=== PATIENT | female | born 1965 | race Caucasian/White ===

== ENCOUNTER 2017-01-27 12:44 | Emergency (ER) | payer OTHER, MEDICAID ==
[~2017-01-27] VITALS: Wt 72.0 kg
[~2017-01-27 12:44] MED LIST: ACET650T85; ASPI-535; BENA20TA65; CLIN300C2; CLON-230; HYDR25TA6; NITR60OI
[2017-01-27] MEDS ORDERED: SOD CHLORIDE 0.9% 1,000 ML IV STA (14:03)
[2017-01-27 14:25] LABS: BASOPHILS % 0.4 % (0.0-2.0); EOSINOPHILS % 0.3 % (0.0-7.0); HEMATOCRIT 39.4 % (37.0-47.0); HEMOGLOBIN 12.7 g/dl (12.0-16.0); LYMPHOCYTES # 1.3 10^3/ul (0.8-2.9); MEAN CORPUSCULAR HEMOGLOBIN 26.2 pg (29.0-33.0); MEAN CORPUSCULAR HGB CONC 32.2 g/dl (32.0-37.0); MEAN CORPUSCULAR VOLUME 81.4 fl (82.0-101.0); MEAN PLATELET VOLUME 12.3 fl (7.4-10.4); MONOCYTE # 0.3 10^3/ul (0.3-0.9); MONOCYTES % 4.2 % (0.0-11.0); NEUTROPHIL # 5.7 10^3/ul (1.6-7.5); NEUTROPHILS % 77.8 % (39.0-77.0); PLATELET COUNT 300 10^3/UL (140-415); RED BLOOD COUNT 4.84 10^6/ul (4.20-5.40); RED CELL DISTRIBUTION WIDTH 13.6 % (11.5-14.5); WHITE BLOOD COUNT 7.3 10^3/ul (4.8-10.8)
[2017-01-27 14:43] LABS: CALCIUM 8.7 mg/dl (8.4-10.2); CREATININE 0.59 mg/dl (0.44-1.00); POTASSIUM 3.8 mmol/L (3.5-5.1)
[2017-01-27] MEDS ORDERED: SOD CHLORIDE 0.9% 100 ML ONE (15:54)
[2017-01-27] MEDS ORDERED: IODIXANOL LOCM 100 ML BTL ONE (15:54)
--- NOTE | 2017-01-27 17:01 | RADRPT ---
PROCEDURE: CT neck with contrast CLINICAL INDICATION: Neck pain and swelling TECHNIQUE: Routine CT scan of the neck was performed with intravenous contrast on a high[employer] multidetector scanner. One or more of the following dose reduction techniques were used: Automated exposure control; Adjustment of the mA and/or kV according to patient size; Use of iterative recons truction technique. CTDI = 9 mGy. DLP = 106 mGy-cm. CONTRAST: 80 ml Visipaque 320 administered without adverse event. COMPARISON: No prior studies are available for comparison. FINDINGS: Sinuses: Visualized paranasal sinuses are clear. Nasopharynx: Clear. Maxilla/Mandible/TMJ: Within normal limits. Suprahyoid neck: Oral cavity and tongue are normal. Normal appearance of palatine and lingual tonsils. Infrahyoid neck: Normal larynx and hypopharynx. Normal false and true vocal cords Visualized subglottic airway and trachea are normal. Salivary glands: Morphology and attenuation of the parotid, submandibular, and sublingual glands are normal. Thyroid gland: Normal morphology and attenuation. 5 mm cystic nodule is present within the superior pole of the right lobe of the thyroid gland. Lymph nodes: No evidence of pathologic enlargement, abnormal morphology or attenuation by CT criteri a. Vascular structures: Normal enhancement of the arterial and venous structures. Cervical spine: Alignment is preserved. No fractures. No significant spondylosis. IMPRESSION: 5 mm cystic nodule is present within the superior pole of the right lobe of the thyroid gland. Otherwise normal examination of the soft tissues of the neck. RPTAT: AADD .Chaz Martinez MD, Date Time Electronically viewed and signed by .Chaz Mratinez MD, on 01/27/2017 17:00 .B/
--- NOTE | 2017-01-27 17:34 | ERD ---
ER Documentation Chief Complaint Chief Complaint THROAT PAIN SENT FOR CT/US OF NECK HPI 51 year-old female patient with a past medical history of diabetes, hypertension , thyroid problems presents to the ED complaining of wanting a CAT scan of her thyroid and neck region because she was sent here by her primary care doctor for further evaluation and treatment. Patient obtained a thyroid ultrasound and had a subcentimeter cystic nodule of 0.50.40.4 cm nodule of the superior pole of the right thyroid lobe. Denies any fever, chest pain, shortness of breath, nausea, vomiting, odynophagia, dysphagia. ROS All systems reviewed and are negative except as per history of present illness. Medications Home Meds Reported Medications Nitroglycerin (Nitroglycerin) 60 Gm Oint..gm. 09/02/10 Clonidine Hcl (Clonidine Hcl) 0.1 Mg Tablet 09/02/10 Benazepril Hcl* (Lotensin*) 20 Mg Tablet 09/02/10 Acetaminophen (Tylenol 8 Hour) 650 Mg Tablet.sa 09/02/10 Aspirin Ec (Aspir 81) 81 Mg Tablet. 09/02/10 Benazepril Hcl* (Lotensin*) 20 Mg Tablet 09/01/10 Hydrochlorothiazide (Hydrochlorothiazide) 25 Mg Tablet 09/01/10 Clindamycin Hcl* (Cleocin*) 300 Mg Cap 09/01/10 Allergies Allergies: Coded Allergies: Penicillins (Verified Allergy, Mild, 04/28/11) PMhx/Soc History of Surgery: Yes (GALLBLADDER SURGERY) Anesthesia Reaction: Yes (VOMITS) Hx Neurological Disorder: No Hx Respiratory Disorders: No Hx Cardiac Disorders: Yes (HTN) Hx Psychiatric Problems: No Hx Miscellaneous Medical Probl: No Hx Alcohol Use: No Hx Substance Use: No Hx Tobacco Use: No Physical Exam Vitals Vital Signs Date Time Temp Pulse Resp B/P Pulse Ox O2 Delivery O2 Flow Rate FiO2 01/27/17 12:47 99.0 97 18 160/95 99 Physical Exam Const: [id number], well-nourished. In no acute distress. Head: Atraumatic, normocephalic Eyes: Normal Conjunctiva without injection. No purulent discharge. PERRL. EOMI ENT: Normal external ear. Ear canal without erythema. Tympanic membrane pearly brunner without effusion or bulging. Nasal canal clear with normal turbinates. Moist oropharynx without tonsillar exudates. Non-erythematous pharynx. Uvula midline. No drooling. No trismus. Neck: Full range of motion. No meningismus. No cervical lymphadenopathy. Tenderness to palpation of the left and right area of her ear or neck. Resp: Clear to auscultation bilaterally. No wheezing, rhonchi, rales, or crackles. No accessory muscle use. No retractions. Cardio: Regular rate and rhythm. No murmurs, rubs or gallops. Abd: Soft, non tender, non distended. Normal bowel sounds. No palpable masses. No rebound tenderness. No guarding. Skin: No petechiae or rashes Back: No midline tenderness. No CVA tenderness. Ext: No cyanosis, or edema. Neur: Awake and alert. Psych: Normal Mood and Affect Results 24 hrs Laboratory Tests Test 01/27/17 14:15 White Blood Count 7.310^3/ul Red Blood Count 4.8410^6/ul Hemoglobin 12.7g/dl Hematocrit 39.4% Mean Corpuscular Volume 81.4fl Mean Corpuscular Hemoglobin 26.2pg Mean Corpuscular Hemoglobin Concent 32.2g/dl Red Cell Distribution Width 13.6% Platelet Count 19278^3/UL Mean Platelet Volume 12.3fl Neutrophils % 77.8% Lymphocytes % 17.0% Monocytes % 4.2% Eosinophils % 0.3% Basophils % 0.4% Nucleated Red Blood Cells % 0.0/100WBC Neutrophils # 5.710^3/ul Lymphocytes # 1.310^3/ul Monocytes # 0.310^3/ul Eosinophils # 0.010^3/ul Basophils # 0.010^3/ul Nucleated Red Blood Cells # 0.010^3/ul Sodium Level 139mmol/L Potassium Level 3.8mmol/L Chloride Level 102mmol/L Carbon Dioxide Level 24mmol/L Anion Gap 17 Blood Urea Nitrogen 10mg/dl Creatinine 0.59mg/dl Glucose Level 278mg/dl Calcium Level 8.7mg/dl Current Medications Medications (Trade) Dose Ordered Sig/Donta Route PRN Reason Start Time Stop Time Status Last Admin Dose Admin Sodium Chloride (NS) 1,000 ml @ 1,000 mls/hr Q1H STAT IV 01/27/17 14:03 01/27/17 15:02 DC 01/27/17 14:17 IV Flush 10 ml 10 ml STK-MED ONCE .ROUTE 01/27/17 15:54 01/27/17 15:55 DC 01/27/17 16:14 Sodium Chloride (NS) 100 ml @ ud STK-MED ONCE .ROUTE 01/27/17 15:54 01/27/17 15:55 DC 01/27/17 16:14 Iodixanol (Visipaque Locm) 100 ml STK-MED ONCE .ROUTE 01/27/17 15:54 01/27/17 15:55 DC 01/27/17 16:14 Procedures/MDM This is a 51-year-old female patient with a past medical history of thyroid problems, diabetes, hypertension presents to the ED complaining of left sided neck pain. Patient is afebrile and nontoxic-appearing. Patient has normal vital signs. Patient was further worked up with CBC, BMP, CT of the soft tissue neck. CBC: No leukocytosis. No e/o of systemic infection. No e/o anemia. CMP: No e/o severe acidosis, alkalosis, renal failure, diabetic ketoacidosis, liver disease Urine: No leukocyte esterase, no nitrites, no hematuria. Glucose 278. Patient received 1 L normal saline. Low suspicion for DKA and HHS. Urine : Negative PROCEDURE: CT neck with contrast CLINICAL INDICATION: Neck pain and swelling TECHNIQUE: Routine CT scan of the neck was performed with intravenous contrast on a high-resolution multidetector scanner. One or more of the following dose reduction techniques were used: Automated exposure control; Adjustment of the mA and/or kV according to patient size; Use of iterative reconstruction technique. CTDI = 9 mGy. DLP = 106 mGy-cm. CONTRAST: 80 ml Visipaque 320 administered without adverse event. COMPARISON: No prior studies are available for comparison. FINDINGS: Sinuses: Visualized paranasal sinuses are clear. Nasopharynx: Clear. Maxilla/Mandible/TMJ: Within normal limits. Suprahyoid neck: Oral cavity and tongue are normal. Normal appearance of palatine and lingual tonsils. Infrahyoid neck: Normal larynx and hypopharynx. Normal false and true vocal cords Visualized subglottic airway and trachea are normal. Salivary glands: Morphology and attenuation of the parotid, submandibular, and sublingual glands are normal. Thyroid gland: Normal morphology and attenuation. 5 mm cystic nodule is present within the superior pole of the right lobe of the thyroid gland. Lymph nodes: No evidence of pathologic enlargement, abnormal morphology or attenuation by CT criteria. Vascular structures: Normal enhancement of the arterial and venous structures. Cervical spine: Alignment is preserved. No fractures. No significant spondylosis. IMPRESSION: 5 mm cystic nodule is present within the superior pole of the right lobe of the thyroid gland. Otherwise normal examination of the soft tissues of the neck. Patient's physical exam include lungs which were clear to auscultation and a normal pulse oximetry. Bilateral ears pearly pate. No tenderness to palpation of tragus or mastoid. Low suspicion for mastoiditis, otitis externa, otitis media. Patient is speaking in full sentences. There is a low suspicion for pneumonia, epiglottitis, croup, sinusitis, peritonsillar abscess, hands foot mouth disease, scarlet fever, Kawasaki disease, Coleman's angina, retropharyngeal abscess, meningitis, sepsis, acute abdomen or other emergent conditions. Follow up with primary care physician in 1-2 days for referral to a specialist to obtain a thyroid biopsy. Instructed patient to return to the ED sooner for any worsening symptoms. Patient's questions were answered. Patient understood and agreed with discharge plan. Patient discharged stable. Departure Diagnosis: Primary Impression: Thyroid nodule Condition: Stable Patient Instructions: Fine-Needle Thyroid Biopsy Referrals: [facility] Usted se pizarro hecho un examen mdico de control que le indica que no est en davy condicin que requiera tratamiento urgente en el Departamento de Emergencia. Un estudio ms profundo y el tratamiento de nam condicin pueden esperar sin ningn riesgo hasta que usted sea atendida/o en el consultorio de nam mdico o davy cl barbi. Es responsabilidad suya arreglar davy jamar para el seguimiento del jane. MANEJO DE CONDICIONES NO URGENTES EN EL FUTURO 1) Si usted tiene un mdico de atencin primaria: Usted debera llamar a nam mdico de atencin primaria antes de venir al departamento de emergencia. Despus de las horas de consultorio, nam doctor o nam asociado/a est disponible por telfono. El mdico o enfermero de larry en el servicio telefnico puede asesorarle por judith medio para atender el problema, o jane contrario se puede programar davy jamar. 2) Si usted no tiene un mdico de atencin primaria: Llame al mdico o clnica de referencia que aparece abajo bettina las horas de consultorio para hacer davy jamar para que le vean. CLINICAS: [facility] [phone] [id number] [facility] [phone] [address] [facility] [phone] [place] [id number] [phone] [place] [id number] [phone] [facility] [phone] [address] [facility]. [facility] () Usted se pizarro hecho un examen mdico de control que le indica que no est en davy condicin que requiera tratamiento urgente en el Departamento de Emergencia. Un estudio ms profundo y el tratamiento de nam condicin pueden esperar sin ningn riesgo hasta que usted sea atendida/o en el consultorio de nam mdico o davy cl barbi. Es responsabilidad suya arreglar davy jamar para el seguimiento del jane. MANEJO DE CONDICIONES NO URGENTES EN EL FUTURO 1) Si usted tiene un mdico de atencin primaria: Usted debera llamar a nam mdico de atencin primaria antes de venir al departamento de emergencia. Despus de las horas de consultorio, nam doctor o nam asociado/a est disponible por telfono. El mdico o enfermero de larry en el servicio telefnico puede asesorarle por judith medio para atender el problema, o jane contrario se puede programar davy jamar. 2) Si usted no tiene un mdico de atencin primaria: Llame al mdico o condado institucions de referencia que aparece abajo bettina las horas de consultorio para hacer davy jamar para que le vean. SI USTED NO PUEDE PAGAR PARA ADRIAN UN MEDICO puede ir a: [facility] [address] [place] [address] [facility] [address] [place] [address] [facility] [address] [place] [address] [facility] [address] [place], [place] [id number] Additional Instructions: Visite a nam mdico maana para un EXAMEN para davy remisin a un especialista para obtener davy biopsia de la tiroides. Regrese a estas instalaciones si no se mejora gely esperbamos o gely le dijimos. MARIAH BRADLEY PA-C Jan 27, 2017 17:34 mejora gely esperbamos o gely le dijimos. MARIAH BRADLEY PA-C Jan 27, 2017 17:34
== END 2017-01-27 17:40 | disposition home or self-care (01) ==
LOC: FTE 12:44
DX: E04.1 Nontoxic single thyroid nodule (principal); I10 Essential (primary) hypertension; Z79.82 Long term (current) use of aspirin
CPT/HCPCS: 36415; 70491; 80048; 85025; J7030; Q9967; Z7502; Z7610